=== PATIENT | male | born 1965 | race Caucasian/White ===

== ENCOUNTER → 2020-02-23 13:23 | Outpatient (CLI) | payer OTHER, SELFPAY ==
[2020-02-23 14:04] LABS: Coronavirus 19 IgG Antibody Negative (Negative); Coronavirus 19 IgM Antibody Negative (Negative)
== END ==
PROVIDERS: Visit Provider Surgery
DX: Z01.818 Encounter for other preprocedural examination (principal); Z12.11 Encounter for screening for malignant neoplasm of colon
CPT/HCPCS: 36415; 86328

== ENCOUNTER 2020-02-25 08:30 | Day surgery (SDC) | payer OTHER, SELFPAY ==
[2020-02-25 08:50] VITALS: BMI 25.4
[2020-02-25 08:51] VITALS: BP 116/92; PULSE 84; RESP 20; TEMP 36.4; O2SAT 98
[2020-02-25 09:26] VITALS: O2SAT 98
--- NOTE | 2020-02-25 09:27 | P.HP_ITS ---
HPI HPI: Patient is a 54-year-old white male referred by Ethan Crowe for initial screening colonoscopy. [facility] History I have reviewed the patient's past medical history: Yes Medical History: Reports:: Hyperlipidemia, Hypertension Denies:: Cancer, Diabetes Mellitus Type 1, Diabetes Mellitus Type 2, Internal Pacemaker, MRSA, Seizures *Have you ever received a pneumonia vaccine?: No *Have you received a flu vaccine this season?: No Laterality Cases: Right: Other Other Surgeries: No: Pacemaker Amputation: No Fractures: Yes - *Social History Last grade of school completed: High school graduate Smoking Status: Never smoker Alcohol Intake: never Substance Use Type: denies use *Occupational Status:: employed Housing: house *Travel in the last 8 weeks: None Family Hx:: Heart Attack, Hypertension, Stroke Review of Systems - Review of Systems Review of systems:: pertinent systems reviewed and negative unless documented below Meds Home Medications Medication Instructions Recorded Confirmed Type atorvastatin 20 mg tablet 20 mg PO DAILY 01/24/20 02/25/20 History lisinopril 2.5 mg tablet 2.5 mg PO BID 01/24/20 02/25/20 History Ubidecarenone [Co Q-10] 10 mg PO DAILY 02/25/20 02/25/20 History Allergies Allergy/AdvReac Type Severity Reaction Status Date / Time morphine Allergy Unknown Verified 02/24/20 10:41 Exam Vital signs and Labs for Last 24 Hours: Temp Pulse Resp BP Pulse Ox 97.6 F 84 20 116/92 H 98 02/25/20 08:51 02/25/20 08:51 02/25/20 08:51 02/25/20 08:51 02/25/20 08:51 I & O for Last 24 hours: Intake & Output 02/22/20 02/23/20 02/24/20 02/25/20 11:59 11:59 11:59 11:59 Weight 177 lb - *Routine HEENT Exam Head: Present: normocephalic Eye: Present: EOMI, PERRL ENT: Present: mucous membranes moist - *Routine Neck Exam Present: supple. Absent: lymphadenopathy - *Routine Respiratory Exam Present: CTA bilaterally - *Routine Cardiovascular Exam Present: RRR - *Routine Abdominal Exam Present: soft, normoactive bowel sounds. Absent: tenderness - *Routine Extremities Exam Absent: cyanosis, clubbing, edema - *Routine Skin Exam Present: warm. Absent: rash - *Routine Neurological Exam Present: alert, oriented X3 Assessment and Plan - Assessment and plan all Dx Assessment and Plan for all problems:: Proceed with colonoscopy
--- NOTE | 2020-02-25 09:39 | P.PN_ITS ---
[facility] Anesthesia Checklist - Patient Identification Patient Identification: Arm Band, Verbal (Name & ) - Structural Data Admitted From: Home Planned Operative Procedure/s: Colonoscopy Consent for Planned Operative Procedure(s) Verified: Yes Verified Documents: Surgical Consent, History and Physical - NPO Status Verified Time NPO: 00:00 - Chart Verification Results Verified: None - Additional verifications Anesthesia Reactions: No - Airway Assessment C-Spine Mobility Assessed: Yes TMJ Mobility Assessed: Yes Dentition: Good Dentition - Neurological Assessment Level of Consciousness: Awake, Alert, Appropriate, Follows Commands Hx Seizures: No Numbness or tingling in extremities: No - Anesthesia Plan Anesthesia Risk discussed: Yes Anesthesia Plan: Verified ASA Class: II Anesthesia Type: MAC [facility] History I have reviewed the patient's past medical history: Yes Medical History: Reports:: Hyperlipidemia, Hypertension Denies:: Cancer, Diabetes Mellitus Type 1, Diabetes Mellitus Type 2, Internal Pacemaker, MRSA, Seizures *Have you ever received a pneumonia vaccine?: No *Have you received a flu vaccine this season?: No Anesthesia experience/problems:: None Laterality Cases: Right: Other Other Surgeries: No: Pacemaker Amputation: No Fractures: Yes - *Social History Last grade of school completed: High school graduate Smoking Status: Never smoker Alcohol Intake: never Substance Use Type: denies use *Occupational Status:: employed Housing: house *Travel in the last 8 weeks: None Family Hx:: Heart Attack, Hypertension, Stroke
[2020-02-25 10:03] VITALS: BP 123/65; PULSE 75; RESP 18; TEMP 36.2; O2SAT 95
--- NOTE | 2020-02-25 10:03 | HMH.SCOPE ---
- Procedure: Date: 02/25/20 Patient Date of :: 1965 Procedure Performed:: Total colonoscopy with polypectomy with biopsy forceps and snare Indications:: Patient is a 54-year-old male referred by Dr. Ethan Crowe for initial screening colonoscopy Performing Provider:: Michael Mtz MD Referring Provider:: Ethan Crowe Sedation:: MAC sedation Procedure:: Patient was taken to endoscopy procedure room. He was positioned in a lateral decubitus position. Adequate intravenous sedation was achieved. Digital examination was performed which revealed unremarkable prostate. Variable stiffness Olympus colonoscope was inserted via the anus. Was advanced to the cecum. Colonic preparation was good. Ileocecal valve and appendiceal orifice were clearly identified. Colonoscope was advanced into the terminal ileum which appeared grossly normal with some lymphoid hyperplasia. Colonoscope was slowly withdrawn through the colon with careful surveillance. There were several diminutive polyps encountered which were removed with a variety of technique. Please see findings below for details. Retroflexion within the rectum revealed some minor prolapsing internal hemorrhoids. Colonoscope was withdrawn. Findings:: Rectosigmoid polyps x 2, hyperplastic appearing, removed with cold snare and biopsy Rectal polyp x2, hyperplastic appearing, removed with cold cutting snare Distal rectal polyp x3, hyperplastic appearing, removed with cold biopsy forceps Distal rectal polyp, possible adenoma, removed with cold snare Anorectal lesion, removed with biopsy forceps Internal hemorrhoids Recommendations:: Pending the pathology repeat colonoscopy 3 to 5 years Complications:: None Estimated blood obtained (mL): 3
[2020-02-25 10:13] VITALS: BP 111/68; PULSE 65; RESP 18; O2SAT 97
[2020-02-25 10:23] VITALS: BP 125/60; PULSE 70; RESP 18; O2SAT 97
[2020-02-25 10:33] VITALS: BP 120/67; PULSE 71; RESP 18; O2SAT 97
== END 2020-02-25 10:35 | disposition home or self-care (01) ==
LOC: OUTP 08:34
PROVIDERS: PCP Family Medicine; Visit Provider Surgery
PROC: 0DJD8ZZ Inspection of Lower Intestinal Tract, Via Natural or Artificial Opening Endoscopic (ICD-10-PCS; CPT 45385; principal; 2020-02-25 07:30)
DX: Z12.11 Encounter for screening for malignant neoplasm of colon (principal); K63.5 Polyp of colon; K64.9 Unspecified hemorrhoids; I10 Essential (primary) hypertension; E78.5 Hyperlipidemia, unspecified; Z79.899 Other long term (current) drug therapy; Z88.6 Allergy status to analgesic agent
CPT/HCPCS: 45385; 45380

== ENCOUNTER 2023-11-24 06:27 | Day surgery (SDC) | payer OTHER, SELFPAY ==
[2023-11-21 16:04] VITALS: BMI 26.2
[2023-11-24] VITALS (9 sets, daily range): BP systolic 94–124; BP diastolic 57–85; PULSE 57–80; RESP 16–18; TEMP 36.4–36.5; O2SAT 95–98
[2023-11-24] MEDS: LACTATED RINGERS 1000ML 1,000 ML 25 ML IV (06:49)
--- NOTE | 2023-11-24 06:51 | P.PCN_ITS ---
Procedure: Date: 11/24/23 Patient Date of :: 1965 Procedure Performed:: Total colonoscopy to terminal ileum with polypectomy Indications:: Patient is a 58-year-old male from [place]. I had performed initial screening colonoscopy on 02/25/2020. At that time he had multiple polyps. He did have a couple of tubular adenomas including a no rectal tubular adenoma. Repeat colonoscopy was recommended approximately 3 years. Patient states that he was only able to tolerate one of the 2 bottles of the Clenpiq. . Performing Provider:: Michael Mtz MD Referring Provider:: Ethan Crowe MD Sedation:: MAC sedation Procedure:: Patient history was obtained and appropriate physical examination was performed. Patient's medications and allergies were reviewed. Informed consent was obtained after explaining the benefits, alternatives, and risks of the procedure including, but not limited to, bleeding, perforation, missed lesions, and adverse reaction to anesthesia medications. Patient was transported to endoscopy procedure room. Patient was connected to monitoring devices. Throughout the procedure the patient's blood pressure, pulse, and oxygen saturations were monitored continuously. Patient valdez ntification and planned procedure were verified by the staff. Patient was positioned in lateral decubitus position. Digital anorectal exam was performed. Variable stiffness Olympus colonoscope was inserted and advanced under direct visualization to the cecum. Adequacy of the colonic preparation was noted. The colonoscope was advanced a short distance into the terminal ileum. The colonoscope was then slowly withdrawn while carefully examining the color, texture, anatomy, and integrity of the mucosoa circumferentially. Within the rectum retroflexion was performed. Colonoscope was then withdrawn. Impression: Colonic preparation was fair. There was some particulate opaque stool mostly in the right colon with some stool adherent to the chin. In the cecum there was a small adenomatous appearing polyp removed with cold snare. In the ascending colon there was a tiny diminutive polyp on a ridge removed with biopsy forceps. In the rectum there was a small adenomatous appearing polyp removed with cold snare. There was an adjacent possible early adenomatous polyp removed with biopsy forceps. He had circumferential internal hemorrhoids. . Findings:: Polyps as noted above Fair preparation Internal hemorrhoids . Recommendations:: Pending pathology likely repeat colonoscopy 2 or 3 years given polyps and suboptimal preparation. Complications:: None immediately apparent Estimated blood obtained (mL): 3 Colonoscopy Component Colonoscopy Component Was a colonoscopy performed during today's procedure?: Yes Recommended follow up colonoscopy of at least 10 years?: No If no, follow up colonoscopy recommended in ___ years?: 3 Reason for not recommending >/= 10 yr follow-up interval?: See above
--- NOTE | 2023-11-24 07:00 | P.PNANES_ITS ---
[facility] Disclaimer: The information contained in this section may have been updated after the patient was seen, as this information can be updated by other users. Medical History Hyperlipidemia Hypertension Surgical History History of surgery on lower extremity Family History (Updated 11/24/23 @ 06:48 by Nazanin Healy RN) Other Heart attack Hypertension Social History (Updated 11/24/23 @ 06:49 by Nazanin Healy RN) Smoking Status: Never smoker second hand exposure: No alcohol intake: never substance use type: denies use current occupational status: employed Travel in the last 8 weeks: None housing: house current occupation: aircraft general repair mechanic current occupational exposures/hazards: Yes caffeine: Yes [facility] Anesthesia Checklist Patient Identification Patient Identification: Arm Band, Family and Verbal (Name & ) Structural Data Admitted From: Home Planned Operative Procedure/s: Colonoscopy Consent for Planned Operative Procedure(s) Verified: Yes Verified Documents: Surgical Consent and History and Physical NPO Status Verified Time NPO: 01:00 Chart Verification Results Verified: None Additional verifications Patient : No Anesthesia Reactions: No Cardiovascular Assessment Heart Sounds: S1 & S2 Pulse Rhythm: Irregular Peripheral Edema: No Airway Assessment Mallampati Score:: Class I C-Spine Mobility Assessed: Yes (FROM) TMJ Mobility Assessed: Yes Dentition: Good Dentition (Nothing loose per pt.) Neurological Assessment Level of Consciousness: Awake, Alert, Appropriate and Follows Commands Hx Seizures: No Numbness or tingling in extremities: No Anesthesia Plan Anesthesia Risk discussed: Yes Anesthesia Plan: Verified ASA Class: II Anesthesia Type: MAC
--- NOTE | 2023-11-24 08:07 | P.PNANES_ITS ---
[facility] Anesthesia Record Part I Anesthesia Record I Intake, IV Amount: 700 Hydration: Adequate Estimated blood loss (mL): 1 Urine output (mL): 0 Blood Products used (#): none Blood Pressure: 97/62 SaO2: 95 Pulse Rate: 80 Airway Patency: Patent Respiratory Rate: 16 Temperature: 97.6 F Patient is:: Drowsy and Stable Stable to PACU at:: 07:56
== END 2023-11-24 08:46 | disposition home or self-care (01) ==
PROVIDERS: PCP Family Medicine; Visit Provider Surgery
PROC: 0DJD8ZZ Inspection of Lower Intestinal Tract, Via Natural or Artificial Opening Endoscopic (ICD-10-PCS; CPT 45380; principal; 2023-11-24 07:30)
DX: Z12.11 Encounter for screening for malignant neoplasm of colon (principal); D12.2 Benign neoplasm of ascending colon; D12.0 Benign neoplasm of cecum; K62.1 Rectal polyp; K64.8 Other hemorrhoids; Z86.010 Personal history of colon polyps; Z09 Encounter for follow-up examination after completed treatment for conditions other than malignant neoplasm
CPT/HCPCS: 45380; 45385; J2704; J7120